=== PATIENT | male | born 1965 | race African-American/Black ===

== ENCOUNTER → 2016-09-07 | Outpatient (CLI) | payer OTHER ==
--- NOTE | 2016-09-07 11:14 | KCIC ---
PROCEDURE MR of the left knee HISTORY Left knee pain around the patella for 2 weeks. No known injury. COMPARISON None TECHNIQUE Routine multiplanar sequences. FINDINGS No medial or lateral meniscal tear. Anterior cruciate ligament intact Posterior cruciate ligament intact. Medial collateral ligament intact. Iliotibial band unremarkable. Fibular collateral ligament, biceps femoris tendon and popliteus tendon are intact. Extensor mechanism intact. Small joint effusion. Mild edema within the upper lateral infrapatellar fat. No evidence of osteochondral loose body. Mild chondromalacia at the medial compartment. Mild chondromalacia at the lateral compartment. Small partial depth narrow fissure at the lateral patellar facet. No bone lesion or acute fracture. Mild soft tissue edema at the posterior lateral corner of the knee. IMPRESSION 1. No meniscal tear or internal derangement. 2. Mild primary osteoarthritis. 3. Mild edema at the posterolateral corner of the knee. No large ligament or tendon injury identified in the posterior lateral corner but this could correlate with a small ligament injury. Electronically signed by: Manohar Bower MD (September 07, 2016 11:13:26)
== END | disposition home or self-care (01) ==
LOC: KCIC MRI 08:25
PROVIDERS: ATTEND Family Medicine
DX: M17.12 Unilateral primary osteoarthritis, left knee (principal)
CPT/HCPCS: 73721